=== PATIENT | female | born 1995 | race Caucasian/White ===

== ENCOUNTER 2019-08-22 06:41 | Emergency (ER) | payer SELFPAY ==
--- NOTE | 2019-08-22 07:45 | PDOC ---
History of Present Illness - General Stated Complaint: NAUSEA Time Seen by Provider: 08/22/19 07:44 - History of Present Illness Initial Comments: 08/22/19 09:08 24 y/o F no significant past medical hx, presents to the ER with 1 week of productive cough, chills and sore throat. Symptoms were temporarily relieved with Nyquil and advil, but patient has not taken these medications in 2 days. She was prompted to come to the ER after developing nausea while at work at around 5 a.m. cough is productive of greenish phlegm. She endorses myalgias, receiving the flu shot in April. she denies, shortness of breath, fevers, vomiting, chest pain, hx of clots, recent immobilization, pleuritic chest pain, unilateral leg swelling. Past History - Past Medical History Allergies/Adverse Reactions: Allergies Allergy/AdvReac Type Severity Reaction Status Date / Time No Known Allergies Allergy Verified 08/22/19 07:53 Home Medications: Ambulatory Orders Ondansetron [Zofran *Odt*] 4 mg SL BID #14 od.tablet 08/22/19 Review of Systems - Review of Systems Constitutional: Yes: Chills. No: Fever HEENTM: No: Eye Pain, Blurred Vision Respiratory: Yes: Cough. No: Shortness of Breath, Wheezing Cardiac (ROS): No: Chest Pain, Palpitations ABD/GI: Yes: Nausea. No: Vomiting : No: Burning, Dysuria Musculoskeletal: No: Back Pain, Joint Pain Integumentary: No: Bruising, Change in Color Neurological: No: Headache, Numbness *Physical Exam - Physical Exam 08/22/19 09:14 PE: GENERAL: Awake, alert, and fully oriented, in no acute distress HEAD: No signs of trauma, normocephalic, atraumatic EYES: PERRL, EOMI, sclera anicteric, conjunctiva clear ENT: Auricles normal inspection, hearing grossly normal, nares patent, oropharynx clear without exudates. Moist mucosa NECK: Normal ROM, supple, no lymphadenopathy, JVD, or masses LUNGS: No distress, speaks full sentences, faint course breath sounds mid left lung field posteriorly HEART: Regular rate and rhythm, normal S1 and S2, no murmurs, rubs or gallops, peripheral pulses normal and equal bilaterally. ABDOMEN: Soft, nontender, normoactive bowel sounds. No guarding, no rebound. No masses EXTREMITIES : Normal inspection, Normal range of motion, no edema. No clubbing or cyanosis NEUROLOGICAL: Cranial nerves II through XII grossly intact. Normal speech, normal gait, no focal sensorimotor deficits SKIN: Warm, Dry, normal turgor, no rashes or lesions noted ED Treatment Course - LABORATORY CBC & Chemistry Diagram: 08/22/19 08:30 08/22/19 08:30 Medical Decision Making - Medical Decision Making 08/22/19 09:16 24 y/o F no significant past medical hx, presents to the ER with 1 week of productive cough, chills and sore throat. Symptoms were temporarily relieved with Nyquil and advil, workup: cbc, cmp, strep throat, chest x-ray, test. Meds: Zofran, Iv fluids (NS 1L) 08/22/19 09:47 Step negative CXR: no acute chest pathology Discharge - Discharge Information Problems reviewed: Yes Clinical Impression/Diagnosis: URI (upper respiratory infection) Qualifiers: URI type: unspecified URI Qualified Code(s): J06.9 - Acute upper respiratory infection, unspecified Condition: Stable Disposition: HOME - Admission No - Additional Discharge Information Prescriptions: Ondansetron [Zofran *Odt*] 4 mg SL BID #14 od.tablet - Follow up/Referral - Patient Discharge Instructions Patient Printed Discharge Instructions: DI for Nausea -- Adult, DI for Viral Upper Respiratory Infection -- Adult Additional Instructions: You were seen in the emergency room for cough, sore throat and nausea. Take all medications as prescribed. Drink lots of warm fluids, stay hydrated. You can take tylenol or motrin for pain or fever. Please return to the emergency department with any new or worsening symptoms or concerns. Please follow up with your primary care physician within 72 hours. - Post Discharge Activity
[2019-08-22 07:54] VITALS: BP 112/63; PULSE 82; TEMP 97.7; BMI 38.7
[2019-08-22] MEDS ORDERED: SODIUM CHLORIDE 0.9% 500 ML INFUS.BAG IV ONE (08:27)
[2019-08-22] MEDS ORDERED: ONDANSETRON 4 MG/2 ML VIAL IVPUSH ONE (08:27)
[2019-08-22] MEDS ORDERED: ONDANSETRON 4 MG/2 ML VIAL ONE (08:35)
[2019-08-22 09:05] LABS: BASO % 0.4 % (0-2.0); EOS % 1.8 % (0-4.5); HEMATOCRIT 36.5 % (32.4-45.2); HEMOGLOBIN 12.6 GM/dL (10.7-15.3); LYMPH % 16.2 % (8-40); MCH 32.1 pg (25.7-33.7); MCHC 34.4 g/dl (32.0-36.0); MEAN CELL VOLUME 93.1 fl (80-96); MEAN PLT VOLUME 8.2 fl (7.5-11.1); MONO % 7.8 % (3.8-10.2); NEUT % 73.8 % (42.8-82.8); PLATELET COUNT 237 K/MM3 (134-434); RBC 3.92 M/mm3 (3.60-5.2); RDW 13.2 % (11.6-15.6)
[2019-08-22 09:25] LABS: ALBUMIN 3.6 g/dl (3.4-5.0); BILIRUBIN,TOTAL 0.7 mg/dL (0.2-1); BLOOD UREA NITROGEN 18.5 mg/dL (7-18); CALCIUM 8.6 mg/dL (8.5-10.1); CREATININE 0.9 mg/dL (0.55-1.3); POTASSIUM 4.4 mmol/L (3.5-5.1); TOT PROT 6.8 g/dl (6.4-8.2)
--- NOTE | 2019-08-22 09:46 | PDOC ---
Attending Attestation - Resident Resident Name: Hayden Rios - ED Attending Attestation I have performed the following: I have examined & evaluated the patient, The case was reviewed & discussed with the resident, I agree w/resident's findings & plan, Exceptions are as noted - HPI HPI: 08/22/19 09:43 24 F with no PMH presents to ED with 1 week of sore throat and cough and 1 day of nausea. Pt states that her sore throat is worst at night when she sleeps, but it clears up during the day when she's awake. Pt denies F/C. Denies CP/SOB. Pt states that this morning she woke up nauseous. Denies any abdominal pain, vomiting, or diarrhea. - Physicial Exam PE: 08/22/19 09:45 "GENERAL: Awake, alert, and fully oriented, in no acute distress. HEAD: No signs of trauma EYES: PERRLA, EOMI, sclera anicteric, conjunctiva clear ENT: Auricles normal inspection, hearing grossly normal, nares patent, oropharynx clear without exudates. Moist mucosa NECK: Nontender, no stepoffs, Normal ROM, supple, no lymphadenopathy, JVD, or masses LUNGS: Breath sounds equal, clear to auscultation bilaterally. No wheezes, and no crackles HEART: Regular rate and rhythm, normal S1 and S2, no murmurs, rubs or gallops ABDOMEN: Soft, nontender, normoactive bowel sounds. No guarding, no rebound. No masses EXTREMITIES: Normal range of motion, no edema. No clubbing or cyanosis. No cords, erythema, or tenderness NEUROLOGICAL: Cranial nerves II through XII intact. 5/5 strength and sensation in all extremities, Normal speech, normal gait, normal cerebellar function SKIN: Warm, Dry, normal turgor, no rashes or lesions noted. - Medical Decision Making 08/22/19 09:45 24 F with cough, sore throat, nausea. Likely viral infection. Pt with benign abdomen. - Labs - Rapid strep - CXR - IVF, zofran Labs wnl CXR clear strep negative Pt reassessed - nausea resolved, pt tolerating PO Pt is well appearing, with normal vitals. Clinically stable for DC at this time. I discussed the physical exam findings, ancillary test results and final diagnoses with the patient. I answered all of the patient's questions. The patient was satisfied with the care received and felt comfortable with the discharge plan and treatment plan. The patient agrees to follow up with the primary care physician within 24-72 hours.
== END 2019-08-22 10:35 | disposition home or self-care (01) ==
LOC: JER 06:41
PROC: 3E033GC Introduction of Other Therapeutic Substance into Peripheral Vein, Percutaneous Approach (ICD-10-PCS; principal; 2019-08-22)
DX: J06.9 Acute upper respiratory infection, unspecified (principal)
CPT/HCPCS: 36415; 71045-TC-FY; 80053; 84703; 85025; 87070; 87880; 99282-25